=== PATIENT | male | born 1985 | race Caucasian/White ===

== ENCOUNTER 2022-04-18 13:23 | Emergency (ER) | payer OTHER, MEDICAID, SELFPAY ==
--- NOTE | ~2022-04-18 | XR_ITS ---
EXAMINATION: XR finger 1st RT min 2V DATE: 04/18/2022 13:52 INDICATION: Blunt trauma to the right thumb with pain at the distal phalanx TECHNIQUE: Dorsal palmar, lateral and oblique views of the right first digit were obtained COMPARISON: None FINDINGS: Alignment is normal. No fracture. Joint spaces are normal. Soft tissues are unremarkable. IMPRESSION: 1. . Negative right thumb radiographs. Reviewed, dictated and finalized at location A. [facility]
--- NOTE | 2022-04-18 13:40 | ED.UPPEXIN ---
HPI - Extremity Injury (Upper) General Chief Complaint: Extremity Injury, Upper Stated Complaint: Thumb Rt Hand Injury Time Seen by Provider: 04/18/22 13:40 Source: patient Mode of arrival: ambulatory Limitations: no limitations History of Present Illness HPI narrative: Dariusz is a 36-year-old male patient presenting to the clinic today with complaints of right thumb injury. He reports he smashed his right thumb in a machine 2 days ago. He reports pain to the the DIP joint and distal finger Related Data Home Medications Medication Instructions Recorded Confirmed buspirone 5 mg tablet 5 mg PO DAILY 04/18/22 04/18/22 folic acid 1 mg tablet 1 mg PO DAILY 04/18/22 04/18/22 levetiracetam 750 mg tablet 750 mg PO DAILY 04/18/22 04/18/22 pantoprazole 40 mg tablet,delayed 40 mg PO DAILY 04/18/22 04/18/22 release quetiapine 200 mg tablet 200 mg PO DAILY 04/18/22 04/18/22 thiamine HCl (vitamin B1) 100 mg 100 mg PO DAILY 04/18/22 04/18/22 tablet venlafaxine 37.5 mg tablet 37.5 mg PO DAILY 04/18/22 04/18/22 Allergies Allergy/AdvReac Type Severity Reaction Status Date / Time No Known Allergies Allergy Verified 04/18/22 13:46 Review of Systems Review of Systems: Pertinent positives per HPI. Patient denies any fever, chills, rash, headache, visual changes, dizziness, cough, runny nose, sore throat, shortness of breath, chest pain, palpitations, nausea, vomiting, diarrhea, constipation, abdominal pain, or any urinary issues. PMFSH Comments At the time of my signature, I reviewed and agree with the nursing past medical, surgical, social, and family history. There is no relevant family history pertinent to the patient complaint. Exam Narrative: General: Well-developed, well nourished, in no apparent distress Head: Normocephalic, atraumatic. Cardio: Regular rate and rhythm, s1 and s2 normal, no murmur appreciated. Resp: Clear to auscultation bilaterally, no rhonchi, rales, wheezing or rubs. Musculoskeletal: No deformity, old bruising/blood underneath the proximal nail bed, tender to palpation over the distal thumb and proximal nail bed/cuticle, painful with flexion and extension against resistance of the D IP joint, grossly normal range of motion, muscle strength strong and equal, peripheral pulse strong, no edema, no cyanosis, normal gait and station Course Course Emergency Course: Portions of this record may have been created with voice recognition software. Level of Care: Express Care Visit Vital Signs Vital signs: Vital Signs Temperature 36.3 C L 04/18/22 13:45 Pulse Rate 66 04/18/22 13:45 Respiratory Rate 18 04/18/22 13:45 Blood Pressure 116/81 04/18/22 13:45 Pulse Oximetry 100 04/18/22 13:45 Oxygen Delivery Room Air 04/18/22 13:45 Temperature 36.3 C L 04/18/22 13:46 Pulse Rate 66 04/18/22 13:46 Respiratory Rate 18 04/18/22 13:46 Blood Pressure 116/81 04/18/22 13:46 Pulse Oximetry 100 04/18/22 13:46 Oxygen Delivery Room Air 04/18/22 13:46 Vital signs reviewed MDM - Extremity Injury (Upper) MDM Narrative Medical decision making narrative: At the time of visit patient is resting comfortably on the exam table. X-rays negative for any fracture or malalignment of the right thumb. I suspect patient has crush injury. Supportive measures were discussed with the patient he voiced understanding of discharge instructions and agrees to treatment plan Differential Diagnosis Differential diagnosis: Likely finger sprain, dislocation of finger and other (Finger fracture) Imaging Data Radiologist's impression: Close Finger X-Ray (Signed) Hector Reynolds - 04/18/22 Launch?[facility] [address] [address] XRay Report Signed Patient: Dariusz Canales : 1985 MR#: [id number] Age/Sex: 36 / M Acct:[id number] Loc: [facility]? ? ADM Date: 04/18/22Attending Dr: Ordering Physician: Fab
[2022-04-18 13:45] VITALS: BP 116/81; PULSE 66; RESP 18; TEMP 36.3; O2SAT 100
[2022-04-18 13:46] VITALS: BP 116/81; PULSE 66; RESP 18; TEMP 36.3; O2SAT 100
== END 2022-04-18 14:30 | disposition home or self-care (01) ==
PROVIDERS: Emergency Provider Nurse Practitioner Family
DX: S67.01XA Crushing injury of right thumb, initial encounter (principal); W31.9XXA Contact with unspecified machinery, initial encounter; K21.9 Gastro-esophageal reflux disease without esophagitis; F41.9 Anxiety disorder, unspecified; F32.A Depression, unspecified; G40.909 Epilepsy, unspecified, not intractable, without status epilepticus
CPT/HCPCS: 73140; 99203; G0463